=== PATIENT | male | born 1940 | race Caucasian/White ===

== ENCOUNTER → 2021-06-10 | Outpatient (CLI) | payer OTHER | LOC: ECHO 11:43 | DX: R60.0 Localized edema (principal); I51.7 Cardiomegaly; I10 Essential (primary) hypertension | CPT/HCPCS: ECHO; 93306 ==

== ENCOUNTER 2022-03-05 10:59 | Emergency (ER) | payer OTHER ==
[2022-03-05 12:56] LABS: HEMOGLOBIN 14.2 gm/dl (14.0-17.5); RED BLOOD COUNT 4.94 M/UL (4.20-5.50); WHITE BLOOD COUNT 9.3 K/UL (4.5-11.0)
== END 2022-03-05 16:50 | disposition home or self-care (01) ==
LOC: ER1 10:59
PROVIDERS: Physician Assistant
DX: M54.50 Low back pain, unspecified (principal); M25.551 Pain in right hip; G89.29 Other chronic pain; E11.40 Type 2 diabetes mellitus with diabetic neuropathy, unspecified; I10 Essential (primary) hypertension
CPT/HCPCS: 72131; 72192; 80053; 85025; 85610; 85730; 96374; 96375; 99284; J2270; J2405